=== PATIENT | female | born 1990 | race Caucasian/White ===

== ENCOUNTER 2019-11-27 16:12 | Inpatient (IN) | payer MEDICARE, SELFPAY ==
[2019-11-27 16:17] VITALS: BP 134/86; PULSE 103; RESP 14; TEMP 36.7; O2SAT 99; BMI 30.2
--- NOTE | 2019-11-27 17:31 | W.ED.PSYCH ---
HPI - Psych General: Chief Complaint: Psychiatric Symptoms Stated Complaint: mhe Time Seen by Provider: 11/27/19 17:17 History of Present Illness: HPI Narrative: Adali is a 29-year-old female who comes in agitated, paranoid and fearful. She states she is here because her mother wants her here. Her mother who has the patient's power of privacy attorney was contacted by phone by nursing and states that the patient is not eating or sleeping or cooperating. They believe her to be hallucinating. They also believe that her symptoms have been stimulated by the fact her medications have changed. The patient is very withdrawn and nontrusting. She is demanding multiple things. Ultimately she states she does want to go to the [facility] though for help with her medications. Review of Systems General: Reports: ROS unobtainable due to mental status PFSH ED PFSH: Social History Smoking and tobacco status: current every day smoker Physical Exam Const: COMMON NORMALS: no acute distress, patient oriented x3, no limitations, healthy appearing and well nourished GENERAL APPEARANCE: cooperative, well kempt and well developed HENMT: COMMON NORMALS: normocephalic, atraumatic, hearing grossly normal bilaterally, external ears normal, EAC's normal, Normal external nose present and moist oral mucous membranes HEAD & SCALP: normocephalic and atraumatic NOSE: Normal external nose present and Normal nares present EXTERNAL EAR: Yes external ears normal EXTERNAL AUDITORY CANAL: EAC's normal MOUTH: Normal oral and palatal mucosa present, lip normal and tongue normal Eye: COMMON NORMALS: Equal, round and reactive pupils present, EOMs intact bilaterally, conjunctivae normal and no scleral icterus GENERAL EYE: appearance normal, both eyes and all related structures ALIGNMENT: Yes alignment normal PERIORBITAL: periorbital findings normal EYELID: eyelids normal CONJUNCTIVA: Yes conjunctivae normal SCLERA: sclerae normal PUPIL: Yes Equal, round and reactive pupils present Neck/C-Spine: COMMON NORMALS: full ROM, no lymphadenopathy, supple, no meningeal signs and no JVD GENERAL: Yes normal visual inspection and Yes trachea midline Chest: COMMONS NORMALS: normal inspection of the chest and normal palpation of entire chest wall Resp: COMMON NORMALS: normal respiratory effort, No retractions, No use of accessory muscles and clear to auscultation bilaterally EFFORT & INSPECTION: Yes able to speak in complete sentences and Yes symmetric chest movement AUSCULTATION: clear to auscultation bilaterally, no crackles, no rales, no rhonchi and no wheezes Cardio: COMMON NORMALS: no JVD, regular rate, regular rhythm, S1 normal heart sound present, S2 normal heart sound present, No gallops present (Cardio), No clicks present (Cardio), No murmurs present (Cardio) and No rub (Cardio) RATE: regular rate RHYTHM: regular rhythm HEART SOUNDS: S1 normal heart sound present and S2 normal heart sound present GI: COMMON NORMALS: Soft to palpation and No hepatosplenomegaly present PALPATION: Yes Soft to palpation, No Tenderness to palpation present (GI), No Guarding due to palpation present (GI), No Rigid due to palpation, Yes No hepatosplenomegaly present, No Hernia present, No Palpable mass present and No Pulsatile mass present : COMMON NORMALS: Yes no CVA tenderness BLADDER/KIDNEY EXAM: Yes no CVA tenderness EXTERNAL FEMALE EXAM: No Hernia present Back/Pelvis: COMMON NORMALS: no CVA tenderness, thoracic and lumbar spine normal to inspection, no thoracic nor lumbar tenderness and thoraco-lumbar ROM normal Extremity: COMMON NORMALS: normal to inspection, full ROM, capillary refill normal, no joint enlargement, no clubbing, cyanosis or edema and no calf tenderness Neuro: COMMON NORMALS: patient oriented x3, CN's II-XII intact bilaterally, moves all extremities, no focal motor deficits and no sensory deficits noted MENINGEAL SIGNS: Yes no meningeal signs SPEECH: speech normal Psych: APPEARANCE: Yes well kempt ATTITUDE: Yes paranoid and Yes agitated SPEECH: Yes rapid and Yes Pressured speech present MOOD & AFFECT: Yes anxious THOUGHT PROCESS: disorganized and Flight of ideas present Skin: COMMON NORMALS: no rashes or lesions noted, turgor normal, no jaundice, no petechiae and no mottling GENERAL SKIN EXAM: no rashes or lesions noted and turgor normal MDM - Psych MDM Narrative: Medical decision making narrative: The case was reviewed with Dr. Adkins, he agrees to accept the patient to the [facility]. Lab Data: Attestation: I reviewed the patient's lab results. Labs: Lab Results 11/27/19 11/27/19 11/27/19 Range/Units 18:21 18:30 18:30 WBC 12.2 H (4.0-10.0) 10^3/ uL RBC 4.85 (4.1-5.3) 10^6/u L Hgb 15.6 H (11.5-15.3) g/dL Hct 44.5 (37.0-47.0) % MCV 91.8 (81-99) fL MCH 32.2 (28.0-34.0) pg MCHC 35.1 (30.0-36.0) g/dL RDW 12.1 (12.1-15.1) % Plt Count 292 (130-400) 10^3/c mm MPV 9.1 (7.4-10.4) fL Neut % (Auto) 66.6 % Lymph % (Auto) 26.2 % [place] % (Auto) 6.5 % Eos % (Auto) 0.2 % Baso % (Auto) 0.2 % Neut # (Auto) 8.1 H (1.8-7.7) 10^3/u L Lymph # (Auto) 3.2 (0.8-4.8) 10^3/u L [place] # (Auto) 0.8 (0.2-0.9) 10^3/u L Eos # (Auto) 0.0 (0.0-0.8) 10^3/u L Baso # (Auto) 0.0 (0.0-0.1) 10^3/u L Nucleated RBC % (a uto) 0 % Nucleated RBCs # 0.0 /100WBC Sodium 133 L (136-145) mmol/L Potassium 3.3 L (3.5-5.1) mmol/L Chloride 99 (98-107) mmol/L Carbon Dioxide 18 L (22-29) mmol/L Anion Gap 19.3 H (5-19) BUN 4 L (6-20) mg/dL Creatinine 0.6 (0.5-0.9) mg/dL GFR Calculation 119.0 (90-130) mL/min Glucose 93 (65-115) mg/dL Calculated Osmolal ity 271 L (285-295) mOsm/k g Calcium 9.9 (8.5-10.5) mg/dL Magnesium (1.7-2.3) mg/dL Total Bilirubin 0.3 (0.15-1.2) mg/dL AST 20 (0-32) U/L ALT 14 (0-33) U/L Alkaline Phosphata se 88 (35-105) IU/L Total Protein 7.5 (6.6-8.7) g/dL Albumin 4.7 (3.5-5.2) g/dL Globulin 2.8 (1.3-4.6) g/dL TSH 1.92 (0.27-4.20) uIU/ mL HCG, Qual (Negative) Salicylates < 0.3 L (3-10) mg/dL Urine Opiates Scre en Negative (Negative) ng/mL Acetaminophen < 5.0 L (10-30) ug/mL Ur Barbiturates Sc reen Negative (Negative) ng/mL Phenytoin 0.8 L (10-20) ug/mL Valproic Acid 2.8 L (50-100) mcg/mL Carbamazepine 2.0 L (4.0-12.0) ug/mL Ur Phencyclidine S crn Negative (Negative) ng/mL Ur Amphetamines Sc reen Negative (Negative) ng/mL U Benzodiazepines Scrn Negative (Negative) ng/mL [place] (0.6-1.2) mmol/L Urine Cocaine Scre en Negative (Negative) ng/mL U Marijuana (THC) Screen Positive H (Negative) ng/mL Ethyl Alcohol < 10 (0-10) mg/dL 11/27/19 11/27/19 11/27/19 Range/Units 18:30 18:30 18:30 WBC (4.0-10.0) 10^3/ uL RBC (4.1-5.3) 10^6/u L Hgb (11.5-15.3) g/dL Hct (37.0-47.0) % MCV (81-99) fL MCH (28.0-34.0) pg MCHC (30.0-36.0) g/dL RDW (12.1-15.1) % Plt Count (130-400) 10^3/c mm MPV (7.4-10.4) fL Neut % (Auto) % Lymph % (Auto) % [place] % (Auto) % Eos % (Auto) % Baso % (Auto) % Neut # (Auto) (1.8-7.7) 10^3/u L Lymph # (Auto) (0.8-4.8) 10^3/u L [place] # (Auto) (0.2-0.9) 10^3/u L Eos # (Auto) (0.0-0.8) 10^3/u L Baso # (Auto) (0.0-0.1) 10^3/u L Nucleated RBC % (a uto) % Nucleated RBCs # /100WBC Sodium (136-145) mmol/L Potassium (3.5-5.1) mmol/L Chloride (98-107) mmol/L Carbon Dioxide (22-29) mmol/L Anion Gap (5-19) BUN (6-20) mg/dL Creatinine (0.5-0.9) mg/dL GFR Calculation (90-130) mL/min Glucose (65-115) mg/dL Calculated Osmolal ity (285-295) mOsm/k g Calcium (8.5-10.5) mg/dL Magnesium 2.3 (1.7-2.3) mg/dL Total Bilirubin (0.15-1.2) mg/dL AST (0-32) U/L ALT (0-33) U/L Alkaline Phosphata se (35-105) IU/L Total Protein (6.6-8.7) g/dL Albumin (3.5-5.2) g/dL Globulin (1.3-4.6) g/dL TSH (0.27-4.20) uIU/ mL HCG, Qual Negative (Negative) Salicylates (3-10) mg/dL Urine Opiates Scre en (Negative) ng/mL Acetaminophen (10-30) ug/mL Ur Barbiturates Sc reen (Negative) ng/mL Phenytoin (10-20) ug/mL Valproic Acid (50-100) mcg/mL Carbamazepine (4.0-12.0) ug/mL Ur Phencyclidine S crn (Negative) ng/mL Ur Amphetamines Sc reen (Negative) ng/mL U Benzodiazepines Scrn (Negative) ng/mL [place] 0.1 L (0.6-1.2) mmol/L Urine Cocaine Scre en (Negative) ng/mL U Marijuana (THC) Screen (Negative) ng/mL Ethyl Alcohol (0-10) mg/dL Discharge Plan Discharge Patient Disposition: Admitted As Inpatient Admit Provider: Edwin Adkins Clinical Impression: Acute anxiety, Chronic schizophrenia Condition: Stable Discharge Date/Time: 11/27/19 20:45 Coding Level of Care Code ED Disintegrator Feeder for Chg Fwd Exam Comprehensive
[2019-11-27 18:44] LABS: Basophils % 0.2 %; Eosinophils % 0.2 %; Hematocrit 44.5 % (37.0-47.0); Hemoglobin 15.6 g/dL (11.5-15.3); Lymphocytes # 3.2 10^3/uL (0.8-4.8); Lymphocytes % 26.2 %; Mean Corpuscular HGB Conc 35.1 g/dL (30.0-36.0); Mean Corpuscular Hemoglobin 32.2 pg (28.0-34.0); Mean Corpuscular Volume 91.8 fL (81-99); Mean Platelet Volume 9.1 fL (7.4-10.4); Monocytes # 0.8 10^3/uL (0.2-0.9); Monocytes % 6.5 %; Neutrophils # 8.1 10^3/uL (1.8-7.7); Neutrophils % 66.6 %; Nucleated Red Blood Cells % 0 %; Platelet Count 292 10^3/cmm (130-400); Red Blood Count 4.85 10^6/uL (4.1-5.3); Red Cell Distribution Width 12.1 % (12.1-15.1); White Blood Count 12.2 10^3/uL (4.0-10.0)
[2019-11-27 18:48] LABS: Amphetamines Screen Urine Negative (Negative); Barbiturates Screen Urine Negative (Negative); Benzodiazepines Screen Urine Negative (Negative); Cocaine Screen Urine Negative (Negative); Opiate Screen Urine Negative (Negative); PCP Screen Urine Negative (Negative); THC Screen Urine Positive (Negative)
[2019-11-27] MEDS: LORazepam 2 mg Tablet PO (18:49)
[2019-11-27 19:10] LABS: Lithium 0.1 mmol/L (0.6-1.2)
[2019-11-27 19:11] LABS: Alanine Aminotransferase 14 U/L (0-33); Albumin Level 4.7 g/dL (3.5-5.2); Alkaline Phosphatase 88 IU/L (35-105); Anion Gap 19.3 (5-19); Aspartate Amino Transferase 20 U/L (0-32); Blood Urea Nitrogen 4 mg/dL (6-20); Calcium 9.9 mg/dL (8.5-10.5); Carbon Dioxide 18 mmol/L (22-29); Chloride 99 mmol/L (98-107); Globulin 2.8 g/dL (1.3-4.6); Glucose 93 mg/dL (65-115); Osmolality Calculated 271 mOsm/kg (285-295); Phenytoin Dilantin 0.8 ug/mL (10-20); Potassium 3.3 mmol/L (3.5-5.1); Sodium 133 mmol/L (136-145); Thyroid Stimulating Hormone 1.92 uIU/mL (0.27-4.20); Total Bilirubin 0.3 mg/dL (0.15-1.2); Total Protein 7.5 g/dL (6.6-8.7); Valproic Acid Level 2.8 mcg/mL (50-100)
[2019-11-27 19:24] LABS: Acetaminophen < 5.0 ug/mL (10-30); Alcohol Level < 10 mg/dL (0-10); Salicylate < 0.3 mg/dL (3-10)
[2019-11-27 19:27] LABS: HCG, Serum Qual Negative (Negative)
[2019-11-27 20:03] LABS: Magnesium 2.3 mg/dL (1.7-2.3)
[2019-11-27] MEDS: trazodone 50 mg Tablet PO (21:48)
[2019-11-27] MEDS: nicotine 2 mg Gum BUCCAL (21:48)
[2019-11-27 22:00] VITALS: BP 131/79; PULSE 108; RESP 17; TEMP 36.3; O2SAT 95
[2019-11-28] MEDS: BuSPIRONE 10 mg Tablet PO ×4 (00:06→21:39)
[2019-11-28] MEDS: OXcarbazepine 300 mg Tablet 600 MG PO ×3 (00:06→17:17)
[2019-11-28] MEDS: nicotine 2 mg Gum BUCCAL ×10 (00:37→22:30)
[2019-11-28 06:00] VITALS: BP 156/83; PULSE 82; RESP 17; TEMP 36.8; O2SAT 97
[2019-11-28] MEDS: paliperidone ER 3 mg Tablet PO (06:36)
--- NOTE | 2019-11-28 11:15 | PC.RESP ---
SMOKING CESSATION INFORMATION SENT TO PATIENT.
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
[2019-11-28 14:00] VITALS: BP 123/81; PULSE 91; RESP 20; TEMP 36.7; O2SAT 96
[2019-11-28 22:00] VITALS: BP 121/75; PULSE 105; RESP 22; TEMP 36.7; O2SAT 96
[2019-11-28] MEDS: trazodone 50 mg Tablet PO (23:51)
[2019-11-29] MEDS: nicotine 2 mg Gum BUCCAL ×5 (04:10→21:57)
[2019-11-29 06:00] VITALS: BP 124/78; PULSE 91; RESP 20; TEMP 36.9; O2SAT 97
[2019-11-29] MEDS: paliperidone ER 3 mg Tablet PO (07:03)
[2019-11-29] MEDS: BuSPIRONE 10 mg Tablet PO ×3 (08:49→21:57)
[2019-11-29] MEDS: OXcarbazepine 300 mg Tablet 600 MG PO ×2 (08:49→17:23)
[2019-11-29 14:00] VITALS: BP 152/92; PULSE 103; RESP 18; TEMP 37; O2SAT 96
--- NOTE | 2019-11-29 21:40 | PM.NPN ---
Subjective NPU Subjective: Interval history: The patient says that she is no longer suicidal. On the other hand, she cannot remember much of anything when I inquire about past history, medications etc. It turns out she is on the medicine upon which she thought she has done well. This includes buspirone 10 mg 3 times daily; melatonin 10 mg at night; oxcarbazepine 600 mg twice daily and paliperidone 3 mg every morning. Medications: Reviewed: Yes Medication Review Details: Current Medications Acetaminophen (Tylenol) 650 mg PO Q4H PRN PRN Reason: MILD PAIN Benztropine Mesylate (Cogentin) 1 mg PO BID PRN PRN Reason: Mild Extrapyramidal symptoms Buspirone HCl (Buspar) 10 mg PO TID [facility] Last Admin: 11/29/19 17:23 Dose: 10 mg Documented by: Camphor/Menthol/Phenol (Blistex) 1 applic TOPICAL Q1H PRN PRN Reason: DRYNESS Diphenhydramine HCl (Benadryl) 50 mg IM ONCE PRN PRN Reason: Severe Extrapyramidal Symptoms Diphenhydramine HCl (Benadryl) 50 mg IM Q4H PRN PRN Reason: Severe Aggression Haloperidol (Haldol) 5 mg PO Q4H PRN PRN Reason: AGITATION Haloperidol Lactate (Haldol Inj) 5 mg IM Q4H PRN PRN Reason: Severe Aggression Hydroxyzine Pamoate (Vistaril) 50 mg PO Q6H PRN PRN Reason: ANXIETY Loperamide HCl (Imodium Capsule) 2 mg PO Q6H PRN PRN Reason: DIARRHEA Lorazepam (Ativan) 2 mg IM Q4H PRN PRN Reason: Severe Aggression Nicotine (Nicoderm 21 Mg Patch) 1 patch TRANSDERMA DAILY PRN PRN Reason: NICOTINE WITHDRAWAL Nicotine Polacrilex (Nicorette) 2 mg BUCCAL Q2H PRN PRN Reason: NICOTINE WITHDRAWAL Last Admin: 11/29/19 17:22 Dose: 2 mg Documented by: Olanzapine (Zyprexa Zydis) 5 mg PO Q4H PRN PRN Reason: Agitation/Psychosis Ondansetron HCl (Zofran) 4 mg PO Q6H PRN PRN Reason: NAUSEA AND VOMITING Oxcarbazepine (Trileptal) 600 mg PO BID [facility] Last Admin: 11/29/19 17:23 Dose: 600 mg Documented by: Paliperidone (Invega) 3 mg PO QAM [facility] Last Admin: 11/29/19 07:03 Dose: 3 mg Documented by: Mental Status Exam MSE Comments: I am not certain as to the patient's cognitive ability. She did graduate from high school after years of learning support and other special resources. She apparently went to college but did not excel. Mom is her DURABLE POWER OF STEMMER MACHINE but is not necessarily her guardian. Our life care planner will need to contact mom and possibly arrange a meeting to further enlighten this. The patient's mood is nonchalant. She seems not to be interested in the discussion. Mood is flat but not that of a depressed person. She repeatedly says, I don't know. or I don't remember. Cognitive function may not be unimpaired. It is hard to say just yet. Fortunately she denies suicidal or homicidal ideation, plan or intent. There is evidence of psychosis, and that she hears multiple voices but will not specify anything more. Vitals/I&O/Wt Last Vital Signs Temp 98.6 F 11/29/19 14:00 Pulse 103 H 11/29/19 14:00 Resp 18 11/29/19 14:00 BP 152/92 11/29/19 14:00 Pulse Ox 96 11/29/19 14:00 Data NPU : 11/27/19 18:30 11/27/19 18:30 A&P Assessment and plan (1) Acute anxiety: Status: Acute (2) Chronic schizophrenia: Status: Acute Involuntary Hold Information 96 Hour Hold: 96 Hour Involuntary Admission: No Attestations NPU Medical Necessity Statement*: I anticipate 5-7 nights of additional hospitalization Time Spent in Patient Care: Greater than 35 minutes (>than 50% of time spent in counselling and/or direct pt care on unit). Coding Level of Care Code Acute Imagery Analyst for Elena Sanchez Diagnoses Acute anxiety F41.9 Chronic schizophrenia F20.9
[2019-11-29 22:00] VITALS: BP 136/85; PULSE 90; RESP 21; TEMP 36.7; O2SAT 97
[2019-11-30] MEDS: nicotine 2 mg Gum BUCCAL ×4 (02:59→12:08)
[2019-11-30 06:00] VITALS: BP 128/84; PULSE 94; RESP 20; TEMP 37.2; O2SAT 96
[2019-11-30] MEDS: paliperidone ER 3 mg Tablet PO (06:32)
[2019-11-30] MEDS: BuSPIRONE 10 mg Tablet PO ×3 (08:22→21:46)
[2019-11-30] MEDS: OXcarbazepine 300 mg Tablet 600 MG PO ×2 (08:22→17:29)
[2019-11-30 14:00] VITALS: BP 147/98; PULSE 91; RESP 18; TEMP 37; O2SAT 98
[2019-11-30 14:55] VITALS: BP 147/98; PULSE 91; RESP 18; TEMP 37; O2SAT 98
--- NOTE | 2019-11-30 17:49 | P.PN_ITS ---
Subjective NPU Subjective: Interval history: Patient has had a really bad day. She cannot explain why but she used a piece of 1 of her glasses to try to cut her throat. Fortunately it left an abraded area on her neck but there was no deep intrusion into the tissue and no bleeding. She cannot say why but she believes that she will never feel any better. The staff called the patient's mother, who reportedly said, I was afraid of that. Medications: Reviewed: Yes Medication Review Details: Current Medications Acetaminophen (Tylenol) 650 mg PO Q4H PRN PRN Reason: MILD PAIN Benztropine Mesylate (Cogentin) 1 mg PO BID PRN PRN Reason: Mild Extrapyramidal symptoms Buspirone HCl (Buspar) 10 mg PO TID REPLACED BY [facility] Last Admin: 11/30/19 14:19 Dose: 10 mg Documented by: Camphor/Menthol/Phenol (Blistex) 1 applic TOPICAL Q1H PRN PRN Reason: DRYNESS Diphenhydramine HCl (Benadryl) 50 mg IM ONCE PRN PRN Reason: Severe Extrapyramidal Symptoms Diphenhydramine HCl (Benadryl) 50 mg IM Q4H PRN PRN Reason: Severe Aggression Haloperidol (Haldol) 5 mg PO Q4H PRN PRN Reason: AGITATION Haloperidol Lactate (Haldol Inj) 5 mg IM Q4H PRN PRN Reason: Severe Aggression Hydroxyzine Pamoate (Vistaril) 50 mg PO Q6H PRN PRN Reason: ANXIETY Loperamide HCl (Imodium Capsule) 2 mg PO Q6H PRN PRN Reason: DIARRHEA Lorazepam (Ativan) 2 mg IM Q4H PRN PRN Reason: Severe Aggression Nicotine (Nicoderm 21 Mg Patch) 1 patch TRANSDERMA DAILY PRN PRN Reason: NICOTINE WITHDRAWAL Nicotine Polacrilex (Nicorette) 2 mg BUCCAL Q2H PRN PRN Reason: NICOTINE WITHDRAWAL Last Admin: 11/30/19 12:08 Dose: 2 mg Documented by: Olanzapine (Zyprexa Zydis) 5 mg PO Q4H PRN PRN Reason: Agitation/Psychosis Ondansetron HCl (Zofran) 4 mg PO Q6H PRN PRN Reason: NAUSEA AND VOMITING Oxcarbazepine (Trileptal) 600 mg PO BID REPLACED BY [facility] Last Admin: 11/30/19 17:29 Dose: 600 mg Documented by: Paliperidone (Invega) 3 mg PO QAM REPLACED BY [facility] Last Admin: 11/30/19 06:32 Dose: 3 mg Documented by: Mental Status Exam MSE Comments: The patient is need and organized, with the glaring red abrasion around her neck. She looks down at the floor and offers monosyllabic responses to our efforts to understand what is going on. Cognitive functions remain intact with the exception of insight and judgment, which are grossly impaired. Mood is despondent and affect is numb. It is difficult to assess thought processes but there is nothing to suggest that they are not linear and free of racing, blocking and looseness of association. Speech is very limited but there is no dysarthria. The patient is clearly suicidal but not homicidal. Vitals/I&O/Wt Last Vital Signs Temp 98.6 F 11/30/19 14:55 Pulse 91 11/30/19 14:55 Resp 18 11/30/19 14:55 BP 147/98 11/30/19 14:55 Pulse Ox 98 11/30/19 14:55 Data NPU : 11/27/19 18:30 11/27/19 18:30 Involuntary Hold Information 96 Hour Hold: 96 Hour Involuntary Admission: No Attestations NPU Medical Necessity Statement*: I anticipate 5-7 midnights at the very least Time Spent in Patient Care: Greater than 35 minutes Coding Level of Care Code Acute Insurance Assistant for Elena Sanchez
--- NOTE | 2019-11-30 18:16 | PC.NURSE ---
STAFF REPORTED THAT ANOTHER PATIENT APPEARED TO HAVE BLOOD ON HER NECK IN THE DAYROOM. PATIENT ASSESSED IN PATIENT ROOM AND HAS AN APPROX 3 ABRASION ON RIGHT SIDE OF NECK MADE WITH THE BROKEN ARM OFF PATIENT GLASSES. PATIENT PUT ON SUICIDE WATCH IMMEDIATELY AND HAS ONE ON ONE SITTER IN PLACE. PATIENT STATED SHE JUST WANTS TO AND THERE IS NOTHING THID NURSE CAN DO FOR HER EXCEPT CALL HER MOM FOR HER, MOM INFORMED OF SITUATION VIA TELEPHONE AND PATIENT HAD CONVERSATION AND APPEARS TO BE STABLE AT THIS TIME. DR AMAYA INFORMED OF INCIDENT BY THIS NURSE FACE TO FACE.
[2019-11-30] MEDS: OLANZapine 5 mg ODT PO (18:43)
[2019-11-30] MEDS: hyDROXYzine 25 mg Capsule 50 MG PO (21:47)
[2019-11-30 22:00] VITALS: BP 144/87; PULSE 82; RESP 18; TEMP 36.5; O2SAT 90
[2019-12-01] MEDS: nicotine 2 mg Gum BUCCAL ×4 (00:59→21:07)
[2019-12-01] MEDS: trazodone 50 mg Tablet PO ×2 (00:59→21:06)
[2019-12-01 06:00] VITALS: BP 130/79; PULSE 103; RESP 16; TEMP 36.8; O2SAT 97
[2019-12-01] MEDS: paliperidone ER 3 mg Tablet PO (06:49)
--- NOTE | 2019-12-01 07:46 | P.PN_ITS ---
Subjective NPU Subjective: Interval history: The patient and I visited today in her room. She has been with a sitter since yesterday when she tried to cut her throat with 1 of the oculars from her glasses. She is very different today, apologizing profusely for her self-harmful behavior and assuring me that she really wants to get well and will do everything that she can to comply with treatment. I cannot help but wonder if this is the same person. By that I mean, does she have partial complex seizures? Referral for neurologic assessment would be worthwhile. In any case the risk to her today is judged by me to have declined profoundly. If all goes well we will be able to discontinue the sitter and move on with treatment. Medications: Reviewed: Yes Medication Review Details: Current Medications Acetaminophen (Tylenol) 650 mg PO Q4H PRN PRN Reason: MILD PAIN Benztropine Mesylate (Cogentin) 1 mg PO BID PRN PRN Reason: Mild Extrapyramidal symptoms Buspirone HCl (Buspar) 10 mg PO TID [facility] Last Admin: 11/30/19 21:46 Dose: 10 mg Documented by: Camphor/Menthol/Phenol (Blistex) 1 applic TOPICAL Q1H PRN PRN Reason: DRYNESS Diphenhydramine HCl (Benadryl) 50 mg IM ONCE PRN PRN Reason: Severe Extrapyramidal Symptoms Diphenhydramine HCl (Benadryl) 50 mg IM Q4H PRN PRN Reason: Severe Aggression Haloperidol (Haldol) 5 mg PO Q4H PRN PRN Reason: AGITATION Haloperidol Lactate (Haldol Inj) 5 mg IM Q4H PRN PRN Reason: Severe Aggression Hydroxyzine Pamoate (Vistaril) 50 mg PO Q6H PRN PRN Reason: ANXIETY Last Admin: 11/30/19 21:47 Dose: 50 mg Documented by: Loperamide HCl (Imodium Capsule) 2 mg PO Q6H PRN PRN Reason: DIARRHEA Lorazepam (Ativan) 2 mg IM Q4H PRN PRN Reason: Severe Aggression Nicotine (Nicoderm 21 Mg Patch) 1 patch TRANSDERMA DAILY PRN PRN Reason: NICOTINE WITHDRAWAL Nicotine Polacrilex (Nicorette) 2 mg BUCCAL Q2H PRN PRN Reason: NICOTINE WITHDRAWAL Last Admin: 12/01/19 00:59 Dose: 2 mg Documented by: Olanzapine (Zyprexa Zydis) 5 mg PO Q4H PRN PRN Reason: Agitation/Psychosis Last Admin: 11/30/19 18:43 Dose: 5 mg Documented by: Ondansetron HCl (Zofran) 4 mg PO Q6H PRN PRN Reason: NAUSEA AND VOMITING Oxcarbazepine (Trileptal) 600 mg PO BID [facility] Last Admin: 11/30/19 17:29 Dose: 600 mg Documented by: Paliperidone (Invega) 3 mg PO QAM [facility] Last Admin: 12/01/19 06:49 Dose: 3 mg Documented by: Trazodone HCl (Desyrel) 50 mg PO BEDTIME PRN PRN Reason: SLEEP Last Admin: 12/01/19 00:59 Dose: 50 mg Documented by: Mental Status Exam MSE Comments: Patient today is very much interpersonally engaged. Mood is anxious in the sense that she is eager to rise above the pit of despair and to which she had descended. Affect is appropriate. She is very respectful and grateful for my encouragement. It does not seem like the same person. Thought processes are integrated and free of any racing, blocking are looseness of association. Speech is ample and coherent, of normal rate and volume, without dysarthria, aprosody or pressure. Cognitive functions are clearly adequate and the patient now has insight and judgment. She denies suicidal or homicidal ideation, plan or intent. Vitals/I&O/Wt Last Vital Signs Temp 98.3 F 12/01/19 06:00 Pulse 103 H 12/01/19 06:00 Resp 16 12/01/19 06:00 BP 130/79 12/01/19 06:00 Pulse Ox 97 12/01/19 06:00 Data NPU : 11/27/19 18:30 11/27/19 18:30 A&P Assessment and plan (1) Acute anxiety: The possibility exists, although perhaps remote, that she has a form of partial complex seizures, which could fully explain these different personalities which she presents from time to time. A thorough and patient work-up with a good neurologist would certainly be warranted. Secondly, during these intense periods of despair which overcome this patient, it is conceivable that esketamine properly administered at an accredited facility by accredited practitioners might abort unfortunate outcomes. Status: Acute Involuntary Hold Information 96 Hour Hold: 96 Hour Involuntary Admission: No Attestations NPU Medical Necessity Statement*: This is a mystery wrapped in a conundrum hidden within an enigma. It warrants extensive investigation. I anticipate this patient will be here 5-7 nights. Time Spent in Patient Care: Greater than 35 minutes (>than 50% of time spent in counselling and/or direct pt care on unit) . Coding Level of Care Code Acute Iron Plastic Bullet Maker for Elena Sanchez Diagnoses Acute anxiety F41.9
--- NOTE | 2019-12-01 09:00 | PC.NURSE ---
PT NOTE; CLIENT ASSESSED BY DR. AMAYA. ORDERS RECEIVED TO REMOVE 1;1 SITTER AND ALLOW CLIENT TO HAVE HER GLASSES BACK AGAIN.
[2019-12-01] MEDS: OXcarbazepine 300 mg Tablet 600 MG PO ×2 (09:26→18:05)
[2019-12-01] MEDS: BuSPIRONE 10 mg Tablet PO ×3 (09:27→21:06)
[2019-12-01 14:00] VITALS: BP 130/79; PULSE 103; RESP 16; TEMP 36.8; O2SAT 97
[2019-12-01 16:56] VITALS: BP 123/84; PULSE 96; RESP 17; TEMP 36.8; O2SAT 98
[2019-12-01 22:00] VITALS: BP 133/85; PULSE 82; RESP 18; TEMP 36.7; O2SAT 99
--- NOTE | 2019-12-01 23:05 | PC.NURSE ---
PRN TRAZODONE PT REQUESTING SLEEP AID. PT GIVEN TRAZODONE 50 MG PO. WILL MONITOR FOR MEDICATION EFFECTIVENESS.
[2019-12-02] MEDS: nicotine 2 mg Gum BUCCAL ×5 (03:54→14:29)
[2019-12-02 06:00] VITALS: BP 129/79; PULSE 74; RESP 17; TEMP 37.1; O2SAT 95
[2019-12-02] MEDS: paliperidone ER 3 mg Tablet PO (06:41)
[2019-12-02] MEDS: OXcarbazepine 300 mg Tablet 600 MG PO (09:22)
[2019-12-02] MEDS: BuSPIRONE 10 mg Tablet PO ×2 (09:22→14:29)
[2019-12-02 14:00] VITALS: BP 129/82; PULSE 84; RESP 20; TEMP 36.3; O2SAT 95
[2019-12-02 14:21] VITALS: BP 129/79; PULSE 74; RESP 17; TEMP 37.1; O2SAT 95
--- NOTE | 2019-12-02 14:21 | PM.NDC ---
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 Reason for Visit Reason for Visit: [facility] Hospital Course Hospital Course The patient indicates that on November 24 she got off the meds upon which she had done well and she ended up in our hospital a few days later. She has had some 20 hospitalizations, 3 of them here. I suspect this is a very chronic disorder with which she is burdened. Day 2. The patient today is having 1 of her worst days, burdened with despair, driven by desperation. Day 3. The patient is transformed this morning. She is communicative and denies suicidal or homicidal ideation, plan or intent. I asked her if she is able to remember the episode in which she scratched her neck and she said she has no memory of it. She says she has a lot of these periods when she cannot remember what happened. She has had 2 grand mal seizures in the past. I can't help but wonder if were not looking at a Jacksonian seizure disorder. Involuntary Hold Information 96 Hour Hold: 96 Hour Involuntary Admission: No Mental Status Exam MSE Comments: The patient presents today in a calm mood with appropriate affect. She is well made up and her hair is neat. She looks like a normal person, which today she is. Affect is somewhat flattened she is troubled by her affliction. Thought processes are definitely in a normal range and unimpaired periods likewise for speech and cognition. There is no suicidal or homicidal ideation, plan or intent. No evidence of psychosis, such as but not limited to hallucinations, delusions or ideas of reference. Insight and judgment are intact. Discharge Data Vitals: Last Vital Signs Temp 98.7 F 12/02/19 06:00 Pulse 74 12/02/19 06:00 Resp 17 12/02/19 06:00 BP 129/79 12/02/19 06:00 Pulse Ox 95 12/02/19 06:00 Discharge Plan Discharge Patient Disposition: Home, Self-Care Condition: Stable Prescriptions: Continued buspirone 10 mg tablet 10 mg PO TID RF: 0 oxcarbazepine 600 mg Tablet 600 mg PO BID RF: 0 paliperidone 3 mg Tablet Extended Release 24hr 3 mg PO QAM RF: 0 melatonin 10 mg Tablet 10 mg PO DAILY RF: 0 Depo-Medrol See Rx Instructions .ROUTE .COMPLEX RF: 0 Discharge Orders: Discharge Order (Routine); Ordered 12/02/19 Ordered By: Nomi Mosher Referrals: [facility] [Other] - 12/26/19 8:15 am ([facility] is your provider for psychiatric medication. 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
== END 2019-12-02 15:22 | disposition home or self-care (01) | DRG 101 ==
LOC: ER 18:56 → NP 19:34
PROVIDERS: Emergency Medicine; Admitting Provider Psychiatry & Neurology Psychiatry; Visit Provider Psychiatry & Neurology Psychiatry
DX: G40.209 Localization-related (focal) (partial) symptomatic epilepsy and epileptic syndromes with complex partial seizures, not intractable, without status epilepticus (principal); F41.9 Anxiety disorder, unspecified; F22 Delusional disorders; Z62.819 Personal history of unspecified abuse in childhood; Z62.810 Personal history of physical and sexual abuse in childhood; F17.210 Nicotine dependence, cigarettes, uncomplicated
CPT/HCPCS: 12345; 36415; 80053; 80156; 80164; 80178; 80185; 80306; 80307; 83735; 84443; 84703; 85025; 99282

== ENCOUNTER → 2022-11-15 10:21 | Outpatient (BNVA) | payer MEDICARE, OTHER, SELFPAY | PROVIDERS: Visit Provider Nurse Practitioner Family | DX: Z30.09 Encounter for other general counseling and advice on contraception (principal) | CPT/HCPCS: 81025 ==

== ENCOUNTER → 2022-12-14 10:23 | Outpatient (BNVA) | payer MEDICARE, MEDICAID, SELFPAY | PROVIDERS: PCP Nurse Practitioner Family; Visit Provider Nurse Practitioner Family | DX: F41.9 Anxiety disorder, unspecified (principal); Z30.09 Encounter for other general counseling and advice on contraception; Z13.6 Encounter for screening for cardiovascular disorders | CPT/HCPCS: 80053; 80061; 84443; 85025 ==

== ENCOUNTER → 2023-01-04 13:20 | Outpatient (BNVA) | payer MEDICARE, MEDICAID, SELFPAY | PROVIDERS: PCP Nurse Practitioner Family; Visit Provider Nurse Practitioner Family | DX: Z30.09 Encounter for other general counseling and advice on contraception (principal) | CPT/HCPCS: 81025 ==

== ENCOUNTER → 2023-01-24 10:00 | Outpatient (BNVA) | payer MEDICARE, OTHER, SELFPAY | PROVIDERS: PCP Nurse Practitioner Family; Visit Provider Obstetrics & Gynecology | DX: Z12.4 Encounter for screening for malignant neoplasm of cervix (principal) | CPT/HCPCS: 87624 ==

== ENCOUNTER → 2023-11-09 08:41 | Outpatient (BNVA) | payer MEDICARE, OTHER, SELFPAY | PROVIDERS: PCP Nurse Practitioner Family; Visit Provider Nurse Practitioner Family | DX: Z30.42 Encounter for surveillance of injectable contraceptive (principal); Z30.09 Encounter for other general counseling and advice on contraception | CPT/HCPCS: 81025 ==

== ENCOUNTER → 2024-01-25 09:08 | Outpatient (BNVA) | payer MEDICARE, OTHER, SELFPAY | PROVIDERS: PCP Nurse Practitioner Family; Visit Provider Nurse Practitioner Family | DX: Z30.09 Encounter for other general counseling and advice on contraception (principal); Z79.899 Other long term (current) drug therapy | CPT/HCPCS: 80053; 80061; 81025; 83036; 84443; 85025 ==

== ENCOUNTER → 2024-04-11 08:40 | Outpatient (BNVA) | payer MEDICARE, OTHER, SELFPAY | PROVIDERS: PCP Nurse Practitioner Family; Visit Provider Nurse Practitioner Family | DX: Z30.9 Encounter for contraceptive management, unspecified (principal) | CPT/HCPCS: 81025 ==

== ENCOUNTER → 2024-06-28 12:06 | Outpatient (BNVA) | payer MEDICARE, MEDICAID, SELFPAY | PROVIDERS: PCP Nurse Practitioner Family; Visit Provider Nurse Practitioner Family | DX: Z30.09 Encounter for other general counseling and advice on contraception (principal) | CPT/HCPCS: 81025 ==

== ENCOUNTER → 2025-04-16 08:48 | Outpatient (BNVA) | payer MEDICARE, MEDICAID, SELFPAY | PROVIDERS: PCP Nurse Practitioner Family; Visit Provider Nurse Practitioner Family | DX: N92.6 Irregular menstruation, unspecified (principal) | CPT/HCPCS: 81025 ==